=== PATIENT | female | born 1985 | race American Indian/Alaskan Native ===

== ENCOUNTER 2018-08-04 14:09 | Emergency (ER) | payer OTHER ==
[2018-08-04 14:09] VITALS: BMI 29.4
[2018-08-04] MEDS ORDERED: Naproxen 550 mg Tab PO STA (14:34)
[2018-08-04] MEDS ORDERED: Naproxen 550 mg Tab PO ONE (14:41)
--- NOTE | 2018-08-04 15:08 | C.PDOC ---
History Of Present Illness 32 year old female presents to the ED for evaluation of right anterior elbow pain for 1 month. Patient reports occasional numbness and tingling radiating down her right arm. SHx: works in the [employer], repetitive lifting and movements. Denies falls, injuries, fever, nausea, vomiting, and any other. Time Seen by Provider: 08/04/18 14:26 Chief Complaint (Nursing): Upper Extremity Problem/Injury History Per: Patient History/Exam Limitations: no limitations Onset/Duration Of Symptoms: Other (x1 month. ) Current Symptoms Are (Timing): Still Present Past Medical History Reviewed: Historical Data, Nursing Documentation, Vital Signs Vital Signs: Last Vital Signs Temp 98.1 F 08/04/18 14:19 Pulse 98 H 08/04/18 14: Resp 18 08/04/18 14:19 BP 139/100 H 08/04/18 14:19 Pulse Ox 97 08/04/18 14:19 - Medical History PMH: HTN, Hypercholesterolemia - [facility] Procedures MANUAL ASSIST DELIV NEC (04/11/15) Family History: States: Unknown Family Hx - Social History Hx Tobacco Use: No Hx Alcohol Use: No Hx Substance Use: No - Immunization History Hx Tetanus Toxoid Vaccination: No Hx Influenza Vaccination: No Hx Pneumococcal Vaccination: No Review Of Systems Constitutional: Negative for: Fever, Other ((-) injuries. (-) falls. ) Gastrointestinal: Negative for: Nausea, Vomiting Musculoskeletal: Positive for: Other (of right anterior elbow pain.) Neurological: Positive for: Numbness, Other (tingling. ) Physical Exam - Physical Exam Appears: Well, Non-toxic, No Acute Distress, Other (comfortable.) Skin: Normal Color, Warm, Dry, No Rash, No Other ((-) erythema over the elbow. ) Head: Atraumatic, Normacephalic Eye(s): bilateral: Normal Inspection Chest: Symmetrical, No Deformity Cardiovascular: Rhythm Regular, No Murmur Respiratory: Normal Breath Sounds, No Rales, No Rhonchi, No Wheezing Extremity: Tenderness (to palpation over the medial epicondyle of the right elbow. ), Capillary Refill (less than 2 seconds. ), No Deformity, No Swelling Pulses: Left Radial: Normal, Right Radial: Normal Neurological/Psych: Oriented x3, Normal Speech, Normal Motor, Normal Sensation, Normal Reflexes ED Course And Treatment O2 Sat by Pulse Oximetry: 97 (RA) Pulse Ox Interpretation: Normal - Other Rad FT Elbow x-ray X-Ray: Interpreted by Me, Viewed By Me Medical Decision Making Medical Decision Making: Plan: -Naproxen HCG Urine -RT Elbow x-ray Progress/Update: Elbow x-ray viewed by me, results discussed with patient. Jonathan bandage applied. Patient stable for discharge home. Prescribed Naproxen. Follow up with orthopedic. Disposition Counseled Patient/Family Regarding: Studies Performed, Diagnosis, Need For Followup, Rx Given - Disposition Referrals: Isaias Love MD [Staff Provider] - Disposition: HOME/ ROUTINE Disposition Time: 15:10 Condition: STABLE Additional Instructions: FOLLOW UP WITH ORTHOPEDICS WITHIN 1 WEEK USE MEDICATION NEEDED FOR PAIN RETURN TO ER IF SYMPTOMS WORSEN Prescriptions: Naproxen 375 mg PO BID PRN #20 tablet PRN Reason: pain Instructions: Medial Epicondylitis (DC) Forms: [employer] (Chadian), Work Excuse Print Language: FINNISH - Clinical Impression Clinical Impression: Medial epicondylitis of elbow - Scribe Statement The provider has reviewed the documentation as recorded by the Scribe (Negrtia Bello) Provider Attestation: All medical record entries made by the Scribe were at my direction and personally dictated by me. I have reviewed the chart and agree that the record accurately reflects my personal performance of the history, physical exam, medical decision making, and the department course for this patient. I have also personally directed, reviewed, and agree with the discharge instructions and disposition.
--- NOTE | 2018-08-04 16:05 | RAD ---
Date of service: 08/04/2018 PROCEDURE: Radiographs of the right elbow. HISTORY: anterior elbow pain COMPARISON: No prior. FINDINGS: BONES: Normal. No fracture. JOINTS: Normal. No osteoarthritis. SOFT TISSUES: Normal. JOINT EFFUSION: None. OTHER FINDINGS: None. IMPRESSION: No evidence of acute displaced fracture nor dislocation.
[2018-08-05 00:27] VITALS: BP 139/100; PULSE 98; RESP 18; TEMP 98.1; O2SAT 97
== END 2018-08-04 15:19 | disposition home or self-care (01) ==
LOC: C.ER 14:09
DX: M77.01 Medial epicondylitis, right elbow (principal)